=== PATIENT | female | born 1955 | race Caucasian/White ===

== ENCOUNTER 2020-01-21 11:40 | Emergency (ER) | payer BC, OTHER ==
[2020-01-21] MEDS ORDERED: ONDANSETRON 4 MG/2 ML VIAL ONE (12:12)
[2020-01-21] MEDS ORDERED: NA CHLORIDE 0.9% 1,000 ML ONE (12:12)
[2020-01-21] MEDS ORDERED: MORPHINE 4 MG/ML SYR ONE (12:12)
[2020-01-21 12:29] LABS: Absolute Lymphocytes (CBC) 2.3 K/uL (0.7-4.9); Basophils % 0.9 % (0-1.3); Hematocrit 43.7 % (36.0-45.0); Lymphocytes % 36.1 % (15.3-44.8); MPV 9.1 fL (7.6-11.3); RBC Red Blood Cell Count 4.56 M/uL (3.86-4.86)
[2020-01-21 12:42] LABS: Potassium 4.4 mmol/L (3.5-5.1)
--- NOTE | 2020-01-21 12:47 | RAD REPORT ---
EXAM DESCRIPTION: CT - Stone Protocol - 01/21/2020 12:36 pm CLINICAL HISTORY: Flank pain. FLANK PAIN COMPARISON: CTSTONE PROTOCOL dated 06/18/2013 TECHNIQUE: Axial images were obtained without oral or IV contrast. Lack of contrast limits solid org an and vascular assessment. The [id number] spans the entirety of the system partially obscuring uppermost abdomen and lung bases. Coronal reformatted images were obtained and reviewed. All CT scans are performed using dose optimization technique as appropriate and may include automated exposure control or mA/KV adjustment according to patient size. FINDINGS: The lower lung puente are clear. Imaged portions of the liver and spleen show no suspicious findings on non-contrast imaging.Cholecyst ectomy clips. The pancreas and adrenal glands are normal. No pathologic lymphadenopathy in the abdome n or pelvis. 9 mm calculus (1760 HU) is present in the left renal pelvis with mild left hydronephrosis. No bowel obstruction, free air, free fluid or abscess. Normal appendix noted. Moderate lumbosacral degenerative changes. IMPRESSION: 9 mm stone is present in the left renal pelvis with mild left hydronephrosis.
[2020-01-21 13:03] LABS: Urine Blood 2+ (NEG); Urine Glucose NEGATIVE (NEG); Urine Protein 1+ (NEG); Urine Specific Gravity 1.025 (1.005-1.030); Urine pH 5.5 (5.0-7.0)
[2020-01-21] MEDS ORDERED: KETOROLAC 30 MG/ML INJ ONE (13:24)
[2020-01-21] MEDS ORDERED: FENTANYL CITR 100 MCG/2 ML ONE (13:24)
--- NOTE | 2020-01-21 14:08 | EDPHYS ---
Physician Documentation [facility] Name: Eleni Ortiz Age: 64 yrs Sex: Female : 1955 Arrival Date: 01/21/2020 Time: 11:41 Bed 2 Private MD: ED Physician Robert Clarke HPI: 01/20 14:05 This 64 yrs old Female presents to ER via Ambulatory with complaints of kb Possible Kidney Stone. 14:05 The patient complains of pain in the left flank. The pain radiates to the left lower kb quadrant. Onset: The symptoms/episode began/occurred this morning. Modifying factors: The symptoms are alleviated by nothing. the symptoms are aggravated by nothing. Associated signs and symptoms: The patient has no apparent associated signs or symptoms. Severity of pain: At its worst the pain was severe in the emergency department the pain is unchanged. The patient has not experienced similar symptoms in the past. The patient has not recently seen a physician. Pt reports she has had a kidney stone on the left side for approx 3 months. States the pain is intermittent. 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 Historical: - Allergies: 11:58 No Known Allergies; ss - PSHx: 11:58 Lithotripsy; Bladder suspension; Breast biopsy; Tubal ligation; neck surgery; ss - Immunization history:: Adult Immunizations up to date. - Social history:: Smoking status: Patient denies any tobacco usage or history of. ROS: 14:03 Constitutional: Negative for fever, chills, and weight loss, Cardiovascular: Negative kb for chest pain, palpitations, and edema, Respiratory: Negative for shortness of breath, cough, wheezing, and pleuritic chest pain, Abdomen/GI: Negative for abdominal pain, nausea, vomiting, diarrhea, and constipation, Back: Negative for injury and pain, MS/Extremity: Negative for injury and deformity, Skin: Negative for injury, rash, and discoloration, Neuro: Negative for headache, weakness, numbness, tingling, and seizure. 14:03 : Positive for flank pain. Exam: 14:03 Constitutional: This is a well developed, well nourished patient who is awake, alert, kb and in no acute distress. Head/Face: Normocephalic, atraumatic. Chest/axilla: Normal chest wall appearance and motion. Nontender with no deformity. No lesions are appreciated. Cardiovascular: Regular rate and rhythm with a normal S1 and S2. No gallops, murmurs, or rubs. Normal PMI, no JVD. No pulse deficits. Respiratory: Lungs have equal breath sounds bilaterally, clear to auscultation and percussion. No rales, rhonchi or wheezes noted. No increased work of breathing, no retractions or nasal flaring. Skin: Warm, dry with normal turgor. Normal color with no rashes, no lesions, and no evidence of cellulitis. MS/ Extremity: Pulses equal, no cyanosis. Neurovascular intact. Full, normal range of motion. Neuro: Awake and alert, GCS 15, oriented to person, place, time, and situation. Cranial nerves II-XII grossly intact. Motor strength 5/5 in all extremities. Sensory grossly intact. Cerebellar exam normal. Normal gait. 14:03 Abdomen/GI: Inspection: abdomen appears normal, Bowel sounds: normal, Palpation: soft, in all quadrants, moderate abdominal tenderness, in the left lower quadrant. 14:03 Back: CVA tenderness, that is moderate, is noted on the left. Vital Signs: 11:58 BP 130 / 87; Pulse 113; Resp 22; Temp 97.9(TE); Pulse Ox 100% on R/A; Weight 71.67 kg; ss Height 5 ft. 3 in. (160.02 cm); Pain 10/10; 13:00 BP 128 / 58; Pulse 85; Resp 16; Pulse Ox 100% ; rb1 13:56 BP 117 / 53; Pulse 89; Resp 18 S; Pulse Ox 100% on R/A; ca1 14:29 BP 114 / 50; Pulse 80; Resp 16 S; Pulse Ox 99% on R/A; ca1 11:58 Body Mass Index 27.99 (71.67 kg, 160.02 cm) ss MDM: 11:58 Patient medically screened. kb 14:04 Data reviewed: vital signs, nurses notes. Data interpreted: Pulse oximetry: on room air kb is 100 %. Interpretation: normal. Counseling: I had a detailed discussion with the patient and/or guardian regarding: the historical points, exam findings, and any diagnostic results supporting the discharge/admit diagnosis, lab results, radiology results, the need for outpatient follow up, a urologist, to return to the emergency department if symptoms worsen or persist or if there are any questions or concerns that arise at home. ED course: Pt has a urologist in [place] that she will call tomorrow for follow up. Given Dr Cruz's information as well . 01/20 11:59 Order name: Basic Metabolic Panel; Complete Time: 12:53 kb 01/20 11:59 Order name: CBC with Diff; Complete Time: 12:30 kb 01/20 11:59 Order name: CT Stone Protocol; Complete Time: 12:53 kb 01/20 12:25 Order name: Urine Dipstick--Ancillary (enter results); Complete Time: 13:08 mt 01/20 11:59 Order name: IV Saline Lock; Complete Time: 12:27 kb 01/20 11:59 Order name: Labs collected and sent; Complete Time: 12:27 kb 01/20 11:59 Order name: Urine Dipstick-Ancillary (obtain specimen); Complete Time: 12:27 kb Administered Medications: 12:16 Drug: Zofran (Ondansetron) 4 mg Route: IVP; Site: right antecubital; ph 13:00 Follow up: Response: No adverse reaction ca1 12:18 Drug: morphine 4 mg Route: IVP; Site: right antecubital; ph 13:00 Follow up: Response: No adverse reaction ca1 12:55 Drug: NS 0.9% 1000 ml Route: IV; Rate: 1000 ml; Site: right antecubital; rb1 13:55 Follow up: IV Status: Completed infusion; IV Intake: 1000ml ca1 13:17 Drug: TORadol 30 mg Route: IVP; Site: right antecubital; ca1 13:50 Follow up: Response: No adverse reaction ca1 13:19 Drug: fentaNYL (PF) 50 mcg Route: IVP; Site: right antecubital; ca1 13:50 Follow up: Response: No adverse reaction ca1 Disposition: 18:07 Co-signature as Attending Physician, Robert Clarke MD I agree with the assessment and lo plan of care. Disposition: 01/21/20 14:07 Discharged to Home. Impression: Calculus of kidney, Unspecified hydronephrosis - mild, left. - Condition is Stable. - Discharge Instructions: Kidney Stones, [id number]. - Prescriptions for Zofran 4 mg Oral Tablet - take 1 tablet by ORAL route every 12 hours As needed; 20 tablet. Tylenol- Codeine #3 300-30 mg Oral Tablet - take 2 tablets by ORAL route every 6 hours As needed; 20 tablet. - Medication Reconciliation Form, Thank You Letter, Antibiotic Education, Prescription Opioid Use form. - Follow up: Emergency Department; When: As needed; Reason: Worsening of condition. Follow up: Private Physician; When: 2 - 3 days; Reason: Recheck today's complaints, Continuance of care, Re-evaluation by your physician. Follow up: Pancho Cruz MD; When: 2 - 3 days; Reason: Recheck today's complaints. Signatures: Dispatcher [employer] EDMS Ning Lyman, ICT TRAINER-C ICT TRAINER-Ckb Robert Clarke MD MD cha Smirch, Shelby, RN RN ss Yvette Goldstein RN RN Florencia Sorensen, RN RN rb1 Layne Howell RN RN ca1 Corrections: (The following items were deleted from the chart) 14:08 14:07 01/21/2020 14:07 Discharged to Home. Impression: Calculus of kidney; Unspecified kb hydronephrosis - mild, left. Condition is Stable. Forms are Medication Reconciliation Form, Thank You Letter, Antibiotic Education, Prescription Opioid Use. Follow up: Emergency Department; When: As needed; Reason: Worsening of condition. Follow up: Private Physician; When: 2 - 3 days; Reason: Recheck today's complaints, Continuance of care, Re-evaluation by your physician. kb 14:36 14:08 01/21/2020 14:07 Discharged to Home. Impression: Calculus of kidney; Unspecified ca1 hydronephrosis - mild, left. Condition is Stable. Discharge Instructions: Kidney Stones, [id number]. Prescriptions for Zofran 4 mg Oral Tablet - take 1 tablet by ORAL route every 12 hours As needed; 20 tablet, Tramadol 50 mg Oral Tablet - take 1 tablet by ORAL route every 8 hours as needed; 12 tablet. and Forms are Medication Reconciliation Form, Thank You Letter, Antibiotic Education, Prescription Opioid Use. Follow up: Emergency Department; When: As needed; Reason: Worsening of condition. Follow up: Private Physician; When: 2 - 3 days; Reason: Recheck today's complaints, Continuance of care, Re-evaluation by your physician. Follow up: Pancho [place]; When: 2 - 3 days; Reason: Recheck today's complaints. kb
--- NOTE | 2020-01-21 14:08 | ER ---
Nurse's Notes [facility] Name: Eleni Ortiz Age: 64 yrs Sex: Female : 1955 Arrival Date: 01/21/2020 Time: 11:41 Bed 2 Private MD: Diagnosis: Calculus of kidney;Unspecified hydronephrosis-mild, left Presentation: 01/20 11:56 Chief complaint: Patient states: L flank pain that began x 3 months worse this morning. ss Hx of Kidney stones. Coronavirus screen: Patient denies a cough. Patient denies shortness of breath or difficulty breathing. Patient denies measured and/or subjective temperature greater than 100.4F prior to today's visit. Patient denies travel on a cruise ship or to a country the [facility] currently lists as an affected area. Patient denies contact with known and/or suspected case of COVID-19. Ebola Screen: Patient denies exposure to infectious person. Patient denies travel to an Ebola-affected area in the 21 days before illness onset. Initial Sepsis Screen: Does the patient have a suspected source of infection? No. Patient's initial sepsis screen is negative. Risk Assessment: Do you want to hurt yourself or someone else? Patient reports no desire to harm self or others. Onset of symptoms was January 21, 2020. 11:56 Method Of Arrival: Ambulatory ss 11:56 Acuity: ALISHA 2 ss 13:57 Initial Sepsis Screen: Does the patient meet any 2 criteria? No. Patient's initial ca1 sepsis screen is negative. Historical: - Allergies: 11:58 No Known Allergies; ss - PSHx: 11:58 Lithotripsy; Bladder suspension; Breast biopsy; Tubal ligation; neck surgery; ss - Immunization history:: Adult Immunizations up to date. - Social history:: Smoking status: Patient denies any tobacco usage or history of. Screenin:00 Abuse screen: Denies threats or abuse. Nutritional screening: No deficits noted. rb1 Tuberculosis screening: No symptoms or risk factors identified. Fall Risk None identified. Assessment: 12:00 General: Appears distressed, uncomfortable, Behavior is cooperative. Pain: Complains of rb1 pain in left flank Pain currently is 10 out of 10 on a pain scale. Pain began 1 hour ago. Neuro: Level of Consciousness is awake, alert, obeys commands, Oriented to person, place, time, situation. Cardiovascular: Capillary refill < 3 seconds. Respiratory: Airway is patent Respiratory effort is even, unlabored, Respiratory pattern is regular, symmetrical. GI: Bowel sounds present X 4 quads. Abd is soft. : Reports dribbles when urinating. Derm: Skin is pink, warm \T\ dry. 13:00 Reassessment: Patient appears in no apparent distress at this time. Patient and/or rb1 family updated on plan of care and expected duration. Pain level reassessed. Patient is alert, oriented x 3, equal unlabored respirations, skin warm/dry/pink. Patient states feeling better. 13:56 Reassessment: Patient appears in no apparent distress at this time. Patient and/or ca1 family updated on plan of care and expected duration. Pain level reassessed. Patient is alert, oriented x 3, equal unlabored respirations, skin warm/dry/pink. 14:29 Reassessment: Patient appears in no apparent distress at this time. Patient is alert, ca1 oriented x 3, equal unlabored respirations, skin warm/dry/pink. Patient states feeling better. Vital Signs: 11:58 BP 130 / 87; Pulse 113; Resp 22; Temp 97.9(TE); Pulse Ox 100% on R/A; Weight 71.67 kg; ss Height 5 ft. 3 in. (160.02 cm); Pain 10/10; 13:00 BP 128 / 58; Pulse 85; Resp 16; Pulse Ox 100% ; rb1 13:56 BP 117 / 53; Pulse 89; Resp 18 S; Pulse Ox 100% on R/A; ca1 14:29 BP 114 / 50; Pulse 80; Resp 16 S; Pulse Ox 99% on R/A; ca1 11:58 Body Mass Index 27.99 (71.67 kg, 160.02 cm) ED Course: 11:41 Patient arrived in ED. fj1 11:57 Triage completed. ss 11:58 Ning Lyman FNP-C [facility]. kb 11:58 Robert Clarke MD is Attending Physician. kb 11:58 Arm band placed on right wrist. ss 12:00 Patient has correct armband on for positive identification. Bed in low position. Call rb1 light in reach. Side rails up X 1. Pulse ox on. NIBP on. 12:10 Florencia Hanna, SMITH is Primary Nurse. rb1 12:15 Radiology exam delayed due to IV insertion attempt and/or patient not having bq appropriate IV at this time. pain meds. 12:25 Initial lab(s) drawn, by me, sent to lab. Urine collected: clean catch specimen, clear. ph Inserted saline lock: 20 gauge in right antecubital area, using aseptic technique. Blood collected. 12:35 CT completed. Patient tolerated procedure well. Patient moved back from CT. bq 12:37 CT Stone Protocol In Process Unspecified. EDMS 13:00 Report given to SMITH Tillman. rb1 14:08 Pancho Cruz MD is Referral Physician. kb 14:30 No provider procedures requiring assistance completed. IV discontinued, intact, ca1 bleeding controlled, No redness/swelling at site. Pressure dressing applied. Administered Medications: 12:16 Drug: Zofran (Ondansetron) 4 mg Route: IVP; Site: right antecubital; ph 13:00 Follow up: Response: No adverse reaction ca1 12:18 Drug: morphine 4 mg Route: IVP; Site: right antecubital; ph 13:00 Follow up: Response: No adverse reaction ca1 12:55 Drug: NS 0.9% 1000 ml Route: IV; Rate: 1000 ml; Site: right antecubital; rb1 13:55 Follow up: IV Status: Completed infusion; IV Intake: 1000ml ca1 13:17 Drug: TORadol 30 mg Route: IVP; Site: right antecubital; ca1 13:50 Follow up: Response: No adverse reaction ca1 13:19 Drug: fentaNYL (PF) 50 mcg Route: IVP; Site: right antecubital; ca1 13:50 Follow up: Response: No adverse reaction ca1 Intake: 13:55 IV: 1000ml; Total: 1000ml. ca1 Outcome: 14:07 Discharge ordered by . kb 14:30 Discharged to home ambulatory. ca1 14:30 Condition: stable 14:30 Discharge instructions given to patient, Instructed on discharge instructions, follow up and referral plans. no drinking with medication, no driving heavy equipment, medication usage, Demonstrated understanding of instructions, follow-up care, medications, Prescriptions given X 2. 14:36 Patient left the ED. ca1 Signatures: Dispatcher [employer] EDMS Ning Lyman, MIRIAM-C [employer] PICKLING EQUIPMENT OPERATOR-Shazia Philip Shelby, RN RN ss Yvette Goldstein, RN RN ph Jacques, Florencia, RN RN rb1 Layne Howell, RN RN ca1 Presley, Ricco [facility]
[2020-01-21 14:43] VITALS: TEMP 97.9
[2020-01-21 14:46] VITALS: BP 114/50; O2SAT 99
== END 2020-01-21 14:36 | disposition home or self-care (01) ==
LOC: ER 11:40
DX: N13.2 Hydronephrosis with renal and ureteral calculous obstruction (principal)
CPT/HCPCS: 96361; 85025; 80048; 36415; 81003; 76377; 74176; 96375; 96374; 99284; J3010; J7030; J2405